=== PATIENT | male | born 1960 | race Caucasian/White ===

== ENCOUNTER 2025-04-01 08:11 | Outpatient (CLI) | payer OTHER, SELFPAY ==
--- NOTE | ~2025-04-01 | MR_ITS ---
EXAMINATION: MR lumbar spine wo con DATE: 04/01/2025 08:47 INDICATION: Left-sided lumbar radiculopathy. TECHNIQUE: Magnetic resonance imaging (MRI) of the lumbar spine was performed without intravenous contrast. COMPARISON: Lumbar spine radiographs 06/12/2013 FINDINGS: There is 6 degrees dextrocurvature of lumbar spine. There is 3 mm retrolisthesis of T12 on L1 and L1 on L2. There is mild chronic anterior wedging of T11 and T12 vertebral bodies. There is moderately decreased disc height at T12-L1 and L1-L2, mildly decreased disc height at L2-L3, moderately decreased disc height at L3-L4, mildly decreased disc height at L4-L5, and moderately decreased disc height at L5-S1. The distal spinal cord signal intensity is normal. The conus medullaris is at T12-L1. The following disc levels are specifically discussed: T12-L1: The disc is bulging with superimposed left subarticular zone extrusion. There is mild bilateral facet joint osteoarthritis. There is mild bilateral neural foraminal stenosis. There is mild central canal stenosis. There is moderate stenosis of left lateral recess. L1-L2: The disc is bulging with superimposed central extrusion. There is mild bilateral facet joint osteoarthritis. There is moderate bilateral neural foraminal stenosis. There is mild central canal stenosis. L2-L3: The disc is bulging and has an annular fissure. There is mild bilateral facet joint osteoarthritis. There is mild bilateral neural foraminal stenosis. There is mild central canal stenosis. L3-L4: The disc is bulging. There is mild bilateral facet joint osteoarthritis. There is mild right and moderate left neural foraminal stenosis. There is mild central canal stenosis. L4-L5: The disc is bulging. There is moderate bilateral facet joint osteoarthritis. There is moderate right and mild left neural foraminal stenosis. There is mild central canal stenosis. L5-S1: The disc is bulging and has an annular fissure. There is severe right and moderate left facet joint osteoarthritis. There is moderate right and mild left neural foraminal stenosis. There is mild central canal stenosis. IMPRESSION: 1. Moderate lumbar spondylosis. Reviewed, dictated and finalized at location E.
--- OUTSIDE RECORDS SUMMARY | 2025-04-01 08:16 | XMS_ITS | Clinical Summary ---
Author Organization [facility] Address [address] [place] [address] Care Team Providers Care Court Clerk Name Role Phone Aidan Felix MD Primary Care Provider [phone] Social History Tobacco Use Types Packs/Day Years Used Date Smoking Tobacco: Never Assessed Sex and Gender Information Value Date Recorded Sex Assigned at Not on file Legal Sex Male 8:30 PM CDT Gender Identity Not on file Sexual Orientation Not on file Plan of Treatment Health Maintenance Due Date Last Done Comments Colorectal Cancer Screening Colonoscopy (10 Years) 1960 Annual Physical 12/01/1963 Hepatitis C 1978 DTaP, Tdap and Td Vaccines ( 1 - Tdap) 12/01/1979 Pneumococcal Vaccine: 50+ Ye ars (1 of 1 - PCV) 2010 Zoster Vaccines (1 of 2) 2010 COVID-19 Vaccine ( - 2023-2 5 season) 2025 RSV Immunization or 60+ Years (1 - 1-dose 75+ series) 12/01/2035 Meningococcal B Vaccine Aged Out No l onger eligible based on patient's age to complete this topic Meningococcal Vaccine Aged Out No jarod marli eligible based on patient's age to complete this topic RSV Immunizations Under 20 Months Aged Out No longer eligible based on patient's age to complete this topic Insurance [facility] Care Teams Court Clerk Relationship Specialty Start Date End Date Aidan Felix MD PCP - General INTERNAL MEDICINE 08/27/18
--- OUTSIDE RECORDS SUMMARY | 2025-04-01 08:16 | XMS_ITS | Clinical Summary ---
Author Organization [facility] Address [address] [place] [address] Phone Care Team Providers Care Produce Team Lead Name Role Phone Aidan Felix MD Primary Care Provider Eber Ortega MD Unavailable [phone] Allergies No known active allergies Medications carvedilol (COREG) 6.25 MG TabletIndications: Congestive heart failure, unspecified HF chronicity, unspecified heart failure type (HCC),Essential hypertension Take 1 Tab by mouth 2 times daily. 180 Tab 12/12/19 18 Active albuterol 108 (90 Base) MCG/ACT Aerosol Solution take 2 Puffs by inhalation every 6 hours as needed for Wheezing. 1 Inhaler 12/31/19 18 Active Additional Information Patient not taking.Reported on 05/23/2022 loratadine (CLARITIN) 10 MG Tablet Take 1 Tab by mouth daily. 90 Tab 3 12/31/19 18 Active lisinopril (PRINIVIL, ZESTRIL) 5 MG TabletIndications: Congestive heart failure, unspecified HF chronicity, unspecified heart failure type (HCC),Essential hypertension Take 1 Tab by mouth 2 times daily. 180 Tab 3 03/11/20 18 Active simvastatin (ZOCOR) 20 MG TabletIndications: Hyperlipidemia, unspecified hyperlipidemia type Take 1 Tab by mouth every evening. 90 Tab 04/10/20 18 Active orphenadrine (NORFLEX) 100 MG TABLET SR 12 HR Take 1 Tab by mouth 2 times daily as needed for Pain. 60 Tab 04/17/20 18 Active Additional Information Patient not taking.Reported on 05/23/2022 warfarin (COUMADIN) 4 MG Tablet warfarin 4 mg tablet 05/20/20 Active warfarin (COUMADIN) 6 MG Tablet TAKE 1 TABLET BY MOUTH ON FRIDAY AND Friday03/18/20 Active digoxin (LANOXIN) 250 MCG Tablet Take 1 Tablet by mouth daily. 05/28/20 19 Active Viagra 100 MG Tablet TAKE 1 TABLET 1 HOUR PRIOR TO SEXUAL ACTIVITY DIRECTED, BUT NOT TO EXCEED MORE THAN 1 IN 24 HOURS. MUST LAST 30 DAYS 05/07/20 Active HYDROcodone-acetam inophen (NORCO) 5-325 MG TabletIndications: DDD (degenerative disc disease), lumbar Take 1 Tablet by mouth every 6 hours as needed for Severe pain or Moderate or more severe pain. 15 Tablet 12/13/19 25 Active Active Problems Problem Noted Date Diagnosed Date Screening for prostate cancer 06/15/2018 Physical exam, annual (Adult) 03/11/2018 Congestive heart failure 12/10/2017 Atrial fibrillation 12/10/2017 Chronic bilateral low back pain without sciatica 12/10/2017 High blood pressure 12/10/2017 Hyperlipidemia 12/10/2017 Immunizations Immunization Administration Dates Next Due Influenza Vaccine, Quadrivalent, PF 04/28/2018,1 08/02/2016 Influenza, Seasonal, Injectable, Undefined 08/04 Family History Medical History Relation Name Comments Diabetes Brother 1 Diabetes Brother 2 Diabetes Brother 3 No Known Problems Brother 4 No Known Problems Brother 5 No Known Problems Brother 6 Hypertension Father Uterine Cancer Mother No Known Problems Sister 1 No Known Problems Sister 2 No Known Problems Sister 3 No Known Problems Sister 4 No Known Problems Sister 5 No Known Problems Sister 6 Diabetes Sister 7 Heart Attack Sister 7 Relation Name Status Comments Brother 1 Alive Brother 2 Alive Brother 3 Alive Brother 4 Alive Brother 5 Alive Brother 6 Alive Father Mother Sister 1 Alive Sister 2 Alive Sister 3 Alive Sister 4 Alive Sister 5 Alive Sister 6 Alive Sister 7 Social History Tobacco Use Types Packs/Day Years Used Date Smoking Tobacco: Former Cigarettes 1 20 0 07/30/1974 - 07/30/1994 Smokeless Tobacco: Never Tobacco Cessation:Counseling Given: No Comments:quit 1994 Alcohol Use Standard Drinks/Week Comments Yes 0 (1 standard drink = 0.6 oz pur e alcohol) rare to none Sexually Active Control Partners Comments Never Female Sex and Gender Information Value Date Recorded Sex Assigned at Not on file Legal Sex Male 12:34 AM CDT Gender Identity Not on file Sexual Orientation Not on file Occupation Industry Job Start Date Job End Date disabled Not on file Not on file Not on file Last Filed Vital Signs Vital Sign Reading Time Taken Comments Blood Pressure 147/77 12/12/2024 11:27 AM CDT Pulse 76 12/12/2024 11:27 AM CDT Temperature 36.7 C (98 F) 12/12/2024 11:27 AM CDT Respiratory Rate 16 12/12/2024 11:27 AM CDT Oxygen Saturation 98% 12/12/2024 11:27 AM CDT Inhaled Oxygen Concentration - - Weight 77.1 kg (170 lb) 12/12/2024 11:27 AM CDT Height 180.3 cm (5' 11) 12/12/2024 11:27 AM CDT Body Mass Index 23.71 12/12/2024 11:27 AM CDT Plan of Treatment Health Maintenance Due Date Last Done Comments Hepatitis C Virus (HCV) Screening 1960 Cologuard 2005 Immunochemical Fecal Occult Blood 2005 Respiratory Syncytial Virus (RSV) Immunization (Adult) (1 - Risk 60-74 years 1-dose series) 2020 Colonoscopy 07/30/2021 07/30/2016 Colorectal Cancer Screening 07/30/2021 Influenza Immunization (#1) 03/28/202505/29, 08/07/2023, 07/11/2021, Additional history exists SARS-COV-2 Immunization ( season) 2025 07/23/2021, 11/01/2020, 09/25/2020 PSA Discussion Completed 06/15/2018, 12/10/2017 TdaP Immunization Completed 04/29/2019 Zoster Immunization Completed 05/21/2022, Pneumococcal Immunization (50+ years) Completed 06/22/2024 Pneumococcal Immunization Combined Discontinued 06/22/2024 Hepatitis B Immunization Aged Out No longer eligible based on patient's age to complete this topic Human Papillomavirus (HPV) Immunization Aged Out No longer eligible based on patient's age to complete this topic Meningococcal Immunization (ACWY) Aged Out No longer eligible based on patient's age to complete this topic Rotavirus Immunization Aged Out No lo nger eligible based on patient's age to complete this topic Procedures Procedure Name Priority Date/Time Associated Diagnosis Comments PSA SCREEN Routine 06/15/2018 10:59 AM CLERK TRAVEL RESERVATIONS Screening for prostate cancer from Last 3 Months or Most Recently Relevant to Health Maintenance Results * PSA SCREEN (06/15/2018 10:59 AM CLERK TRAVEL RESERVATIONS) PSA SCREEN, TOTAL 1.43 <=4.00 ng/mL 06/15/2018 12:58 PM CLERK TRAVEL RESERVATIONS [facility] Blood specimen (specimen) Venipuncture / Unknown 06/15/2018 10:59 AM CLERK TRAVEL RESERVATIONS 06/15/2018 11:30 AM CLERK TRAVEL RESERVATIONS Narrative [facility] - 06/15/2018 12:58 PM CLERK TRAVEL RESERVATIONS PSA NOTE: The PSA value should be used in conjunction with information available from clinical evaluation and other diagnostic procedures. 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
--- OUTSIDE RECORDS SUMMARY | 2025-04-01 08:16 | XMS_ITS | Clinical Summary ---
Author Organization [facility] Address [address] [place] [address] Care Team Providers Care Ordained Minister Name Role Phone Aidan Felix MD Primary Care Provider Allergies No known active allergies Medications simvastatin (ZOCOR) 20 mg tablet Take 20 mg by mouth nightly 8 Active tamsulosin (FLOMAX) 0.4 mg extended release capsule tamsulosin 0.4 mg capsule Active warfarin (COUMADIN) 5 mg tablet 0 Active lisinopriL (PRINIVIL,ZESTR [place]) 5 mg tablet lisinopril 5 mg tablet 8 Active loratadine (CLARITIN) 10 mg tablet loratadine 10 mg tablet 8 Active digoxin (LANOXIN) 250 mcg (0.25 mg) tablet digoxin 250 mcg (0.25 mg) tablet 8 Active clopidogreL (PLAVIX) 75 mg tablet TK 1 T PO QD 0 Active carvediloL (COREG) 6.25 mg tablet TAKE 1 TABLET BY MOUTH TWICE DAILY DIRECTED FOR 90 DAYS 0 Active tamsulosin (FLOMAX) 0.4 mg extended release capsule Take 1 capsule (0.4 mg total) by mouth daily 30 capsule 11 3 Active naproxen (NAPROSYN) 500 mg tablet Take 1 tablet (500 mg total) by mouth 2 (two) times a day with meals 30 tablet 5 Active methocarbamoL (ROBAXIN) 500 mg tablet Take 1 tablet (500 mg total) by mouth 2 (two) times a day 20 tablet 5 Active HYDROcodone-faraz taminophen (NORCO) 5-325 mg per tabletIndicatio ns:Pain Take 1 tablet by mouth every 6 (six) hours as needed for pain for up to 8 doses 8 tablet Active Active Problems No known active problems Medical History Medical History Date Comments Erectile dysfunction Social History Tobacco Use Types Packs/Day Years Used Date Smoking Tobacco: Unknown Alcohol Use Standard Drinks/Week Comments Never 0 (1 standard drink = 0.6 oz pur e alcohol) AUDIT-C Answer Date Recorded Q1: How often do you have a drink containing alc ohol? Never 01/31/2020 Average Number of Drinks Not on file 020 Frequency of Binge Drinking Not on file 12/2019 Personal Safety Answer Date Recorded Have you ever been in or are you currently in a harmful physical or emotional relationship or is someone making you feel afraid or unsafe? Denies 10/25/2024 Sex and Gender Information Value Date Recorded Sex Assigned at Not on file Legal Sex Male 8:04 PM [employer] Gender Identity Not on file Sexual Orientation Not on file Obstetrics History Last Filed Vital Signs Vital Sign Reading Time Taken Comments Blood Pressure 110/57 10/25/2024 2:10 PM CDT Pulse 55 10/25/2024 2:10 PM CDT Temperature 36.8 C (98.3 F) 10/25/2024 2:10 PM CDT Respiratory Rate 18 10/25/2024 2:10 PM CDT Oxygen Saturation 100% 10/25/2024 2:10 PM CDT Inhaled Oxygen Concentration - - Weight 79.4 kg (175 lb) 10/25/2024 2:10 PM CDT Height 180.3 cm (5' 11) 10/25/2024 2:10 PM CDT Body Mass Index 24.41 10/25/2024 2:10 PM CDT Plan of Treatment Health Maintenance Due Date Last Done Comments Colon Cancer Screening-Colonoscopy 1960 Depression Screening 1960 Hepatitis C Screening 1960 Prostate Cancer Screening-PSA 1960 Hepatitis B Screening 1978 Regular Well Visit/Exam 18-64 1978 Pneumococcal vaccine <65 (1 of 2 - PCV) 12/01/1979 Covid-19 Vaccine (2023-2 5 season) 2024 07/23/2021, 11/01/2020, 09/25/2020 Influenza Vaccine (#1) 2025 , 08/07/2023, 07/11/2021, Additional history exists DTaP/Tdap/Td Vaccine (2 - Td or Tdap) 04/29/2029 04/29/2019 Zoster Vaccine Completed 05/21/2022, 03/05/2022 Insurance [facility] Care Teams Ordained Minister Relationship Specialty Start Date End Date Aidan Felix MD [address] [place] [id number] PCP - General Internal Medicine 10/18/19
== END 2025-04-01 08:12 | disposition home or self-care (01) ==
PROVIDERS: PCP Internal Medicine Infectious Disease; Visit Provider Internal Medicine Infectious Disease
DX: M47.26 Other spondylosis with radiculopathy, lumbar region (principal)
CPT/HCPCS: 72148